=== PATIENT | male | born 1975 | race African-American/Black ===

== ENCOUNTER 2024-06-22 21:44 | Emergency (ER) | payer MEDICAID ==
[~2024-06-22] VITALS: Ht 172.7 cm; Wt 137.0 kg
[2024-06-22 22:11] VITALS: O2SAT 99
[2024-06-23] MEDS ORDERED: NAPR500T7 MT (01:30)
[2024-06-23] MEDS: KETOROLAC 30MG/ML VIAL IM ONE (01:42)
[2024-06-23 02:05] VITALS: BP 139/69; PULSE 81; RESP 20; TEMP 98.2
== END 2024-06-23 02:14 | disposition home or self-care (01) ==
LOC: ER 21:44
DX: M10.9 Gout, unspecified (principal)
CPT/HCPCS: 99283; 73630; 96372; J1885

== ENCOUNTER 2024-08-20 10:27 | Emergency (ER) | payer MEDICAID ==
[~2024-08-20] VITALS: Ht 180.3 cm; Wt 112.0 kg
[~2024-08-20 10:27] MED LIST: NAPR500T7 MT
[2024-08-20 10:33] VITALS: O2SAT 95
[2024-08-20] MEDS: AMIODARONE HCL 50MG/ML 3ML VIAL IV ONE (11:00)
[2024-08-20 11:33] LABS: BASOPHILS % 0.4 % (0.0-2.0); EOSINOPHILS % 0.1 % (0.0-5.0); HEMATOCRIT. 53.1 % (42.0-52.0); HEMOGLOBIN. 17.4 g/dL (14.0-18.0); LYMPHOCYTES % 18.9 % (20.0-50.0); MEAN CORPUSCULAR HEMOGLOBIN 31.8 pg (28.0-32.0); MEAN CORPUSCULAR HGB CONC 32.8 g/dL (31.0-37.0); MEAN PLATELET VOLUME 8.3 fl (7.4-10.4); MONOCYTES % 6.4 % (2.0-8.0); NEUTROPHILS % 74.2 % (40.0-76.0); PLATELET 258 x1000/uL (130-400); RED BLOOD CELL COUNT 5.48 mill/uL (4.7-6.1); RED CELL DISTRIBUTION WIDTH 14.3 % (11.6-14.6); WHITE BLOOD COUNT 13.7 x1000/uL (4.5-11.0)
[2024-08-20 11:42] LABS: CHLORIDE 104 mEq/L (98-107); SODIUM 139 mEq/L (136-145)
[2024-08-20 11:43] LABS: CALCIUM 10.1 mg/dL (8.7-10.4); CARBON DIOXIDE 25 mEq/L (21-32)
[2024-08-20 11:48] LABS: CREATININE 1.3 mg/dL (0.6-1.3); GLUCOSE 113 mg/dL (70-105); UREA NITROGEN BLOOD 10 mg/dL (9-23)
[2024-08-20 11:49] LABS: TROPONIN I HIGH SENSITIVITY 41 ng/L (3.0-53)
[2024-08-20] MEDS: METOPROLOL TARTRATE 25MG TABLET PO ONE (13:15)
[2024-08-20] MEDS: ONDANSETRON HCL 4MG/2ML INJ IV ONE (14:51)
[2024-08-20 15:54] LABS: TROPONIN I HIGH SENSITIVITY 34 ng/L (3.0-53)
[2024-08-20 17:31] VITALS: BP 124/68; PULSE 91; RESP 14; TEMP 36.61404; O2SAT 96
== END 2024-08-20 19:14 | disposition left against medical advice (07) ==
LOC: ER 10:27 → EDBEDREQ 16:29 → ER 19:14
DX: I48.20 Chronic atrial fibrillation, unspecified (principal); I42.2 Other hypertrophic cardiomyopathy; I50.9 Heart failure, unspecified; Z95.0 Presence of cardiac pacemaker
CPT/HCPCS: 80048; 82962; 83880; 85025; 84484; 36415; 71045; 93005; 96374; 96375; 99291; J0282; J2405; Z7610 ×4